=== PATIENT | male | born 1960 | race American Indian/Alaskan Native ===

== ENCOUNTER 2016-08-31 21:36 | Inpatient (IN) | payer OTHER ==
--- NOTE | 2016-08-31 23:02 | ED ---
General Adult HPI - General Chief complaint: Altered Mental Status Stated complaint: Mental Health/Body Aches Time Seen by Provider: 08/31/16 22:09 Source: patient, RN notes reviewed, old records reviewed Mode of arrival: wheelchair Limitations: no limitations - History of Present Illness Initial comments: This is a this is a 56-year-old male who ER for evaluation. Patient states he is coming in for altered patient is living by himself and not acting appropriate , friend states patient is concerned about his thought process and what he is doing. Patient does suffer from hepatitis C with hepatic encephalopathy. Both friend and patient are unsure if he is taking medications appropriately. Patient's really unsure in any answering of any questions. He does complain of mild headache mild abdominal pain mild nausea but having difficulty with attentiveness and answering questions, history is limited - Related Data Home Medications Medication Instructions Recorded Confirmed Baclofen [Lioresal] 20 mg PO TID 08/15/14 08/31/16 Insulin Aspart [NovoLOG] 8 unit SQ AC-TID 08/15/14 08/31/16 Insulin Glargine [Lantus] 20 unit SQ DAILY 08/15/14 08/31/16 Lactulose [Cephulac] 30 ml PO BID 08/15/14 08/31/16 Folic Acid 1 mg PO DAILY 08/31/16 08/31/16 Gabapentin [Neurontin] 300 mg PO BID 08/31/16 08/31/16 HYDROcodone/APAP 5-325MG [[place] 1 - 2 tab PO Q6HR PRN 08/31/16 08/31/16 5-325] Lansoprazole [Prevacid] 15 mg PO DAILY 08/31/16 08/31/16 Lisinopril-Hctz 20-12.5 mg 1 tab PO DAILY 08/31/16 08/31/16 [Zestoretic 20-12.5] Ranitidine HCl [Zantac] 150 mg PO BID 08/31/16 08/31/16 Rifaximin [Xifaxan] 550 mg PO BID 08/31/16 08/31/16 fentaNYL 25MCG/HR PATCH [Duragesic 1 patch TRANSDERM Q72H 08/31/16 08/31/16 25MCG/HR] metFORMIN HCL [Glucophage] 500 mg PO BID 08/31/16 08/31/16 Allergies Allergy/AdvReac Type Severity Reaction Status Date / Time acetaminophen [From Tylenol] Allergy LIVER Verified 08/31/16 22:41 DISEASE aspirin Allergy Unknown Verified 08/31/16 22:41 Review of Systems ROS Statement: Those systems with pertinent positive or pertinent negative responses have been documented in the HPI. ROS Other: All systems not noted in ROS Statement are negative. Past Medical History Past Medical History: COPD, Diabetes Mellitus Additional Past Medical History / Comment(s): HEPATITIS C, ALCOHOLIC CIRROSIS, KIDNEY FAILURE, esophageal varicies History of Any Multi-Drug Resistant Organisms: None Reported Past Surgical History: Unable to Obtain Additional Past Surgical History / Comment(s): finger amputee Past Anesthesia/Blood Transfusion Reactions: No Reported Reaction Past Psychological History: Anxiety, Depression Smoking Status: Current every day smoker Past Alcohol Use History: None Reported, Occasional Past Drug Use History: None Reported - Past Family History Mother Family Medical History: Congestive Heart Failure (CHF) Father Family Medical History: Diabetes Mellitus General Exam Limitations: altered mental status General appearance: alert, in no apparent distress Head exam: Present: atraumatic, normocephalic, normal inspection Eye exam: Present: normal appearance, PERRL, EOMI. Absent: scleral icterus, conjunctival injection, periorbital swelling ENT exam: Present: normal exam, mucous membranes moist Neck exam: Present: normal inspection. Absent: tenderness, meningismus, lymphadenopathy Respiratory exam: Present: normal lung sounds bilaterally. Absent: respiratory distress, wheezes, rales, rhonchi, stridor Cardiovascular Exam: Present: regular rate, normal rhythm, normal heart sounds. Absent: systolic murmur, diastolic murmur, rubs, gallop, clicks GI/Abdominal exam: Present: soft, normal bowel sounds. Absent: distended, tenderness, guarding, rebound, rigid Extremities exam: Present: normal inspection, full ROM, normal capillary refill. Absent: tenderness, pedal edema, joint swelling, calf tenderness Back exam: Present: normal inspection Neurological exam: Present: alert, oriented X3, CN II-XII intact Psychiatric exam: Present: normal affect, normal mood Skin exam: Present: warm, dry, intact, normal color. Absent: rash Course Vital Signs 08/31/16 22:03 Temperature 97.0 F L Pulse Rate 83 Respiratory 18 Rate Blood Pressure 185/96 O2 Sat by Pulse 98 Oximetry - Reevaluation(s) Reevaluation #1: 08/31/16 23:43 Patient shows no real clinical improvement EKG Findings - EKG Comments: EKG Findings:: EKG shows normal sinus rhythm rate of 70, UT 140, QRS 150, QTC 473 Medical Decision Making - Medical Decision Making 56 year for altered mental status evaluation. 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 Patient's GI doctor is not at this hospital patient's coming in today for altered mental status secondary to medical condition. Patient does have elevated ammonia and his altered on exam. Patient unable to answer questions, unable to recall certain events, patient is started to saw this is unable to take counseled secondary to his mental status at this time. Patient be admitted for ammonia reduction with lactulose, resuscitation and monitoring of blood sugar which is also elevated this patient is not taking his insulin - Lab Data Result diagrams: 08/31/16 22:40 08/31/16 22:40 Lab Results 08/31/16 08/31/16 08/31/16 Range/Units 22:40 22:40 22:40 WBC 3.5 L (3.8-10.6) k/uL RBC 4.51 (4.30-5.90) m/uL Hgb 15.9 (13.0-17.5) gm/dL Hct 46.2 (39.0-53.0) % MCV 102.5 H (80.0-100.0) fL MCH 35.4 H (25.0-35.0) pg MCHC 34.5 (31.0-37.0) g/dL RDW 12.7 (11.5-15.5) % Plt Count 63 L (150-450) k/uL Neutrophils % 50 % Lymphocytes % 38 % Monocytes % 8 % Eosinophils % 1 % Basophils % 1 % Neutrophils # 1.8 (1.3-7.7) k/uL Lymphocytes # 1.3 (1.0-4.8) k/uL Monocytes # 0.3 (0-1.0) k/uL Eosinophils # 0.0 (0-0.7) k/uL Basophils # 0.0 (0-0.2) k/uL Manual Slide Review Performed Macrocytosis Slight PT (9.0-12.0) sec INR (<1.1) APTT (22.0-30.0) sec Sodium 133 L (137-145) mmol/L Potassium 4.3 (3.5-5.1) mmol/L Chloride 100 (98-107) mmol/L Carbon Dioxide 22 (22-30) mmol/L Anion Gap 11 mmol/L BUN 18 (9-20) mg/dL Creatinine 0.60 L (0.66-1.25) mg/dL Est GFR (MDRD) Af Amer >60 (>60 ml/min/1.73 sqM) Est GFR (MDRD) Non-Af >60 (>60 ml/min/1.73 sqM) Glucose 384 H (74-99) mg/dL Plasma Lactic Acid Zachary (0.7-2.0) mmol/L Calcium 9.1 (8.4-10.2) mg/dL Phosphorus 3.5 (2.5-4.5) mg/dL Magnesium 1.7 (1.6-2.3) mg/dL Total Bilirubin 0.8 (0.2-1.3) mg/dL AST 101 H (17-59) U/L ALT 182 H (21-72) U/L Alkaline Phosphatase 247 H (38-126) U/L Ammonia (<30) umol/L Total Creatine Kinase 242 H (55-170) U/L Total Protein 7.8 (6.3-8.2) g/dL Albumin 3.9 (3.5-5.0) g/dL Urine Color Urine Appearance (Clear) Urine pH (5.0-8.0) Ur Specific [place] (1.001-1.035) Urine Protein (Negative) Urine Glucose (UA) (Negative) Urine Ketones (Negative) Urine Blood (Negative) Urine Nitrate (Negative) Urine Bilirubin (Negative) Urine Urobilinogen (<2.0) mg/dL Ur Leukocyte Esterase (Negative) Salicylates <1.0 mg/dL Urine Opiates Screen (NotDetected) Ur Oxycodone Screen (NotDetected) Urine Methadone Screen (NotDetected) Ur Propoxyphene Screen (NotDetected) Acetaminophen <10.0 ug/mL Ur Barbiturates Screen (NotDetected) U Tricyclic Antidepress (NotDetected) Ur Phencyclidine Scrn (NotDetected) Ur Amphetamines Screen (NotDetected) U Methamphetamines Scrn (NotDetected) U Benzodiazepines Scrn (NotDetected) Urine Cocaine Screen (NotDetected) U Marijuana (THC) Screen (NotDetected) Serum Alcohol <10 mg/dL 08/31/16 08/31/16 08/31/16 Range/Units 22:40 22:40 23:02 WBC (3.8-10.6) k/uL RBC (4.30-5.90) m/uL Hgb (13.0-17.5) gm/dL Hct (39.0-53.0) % MCV (80.0-100.0) fL MCH (25.0-35.0) pg MCHC (31.0-37.0) g/dL RDW (11.5-15.5) % Plt Count (150-450) k/uL Neutrophils % % Lymphocytes % % Monocytes % % Eosinophils % % Basophils % % Neutrophils # (1.3-7.7) k/uL Lymphocytes # (1.0-4.8) k/uL Monocytes # (0-1.0) k/uL Eosinophils # (0-0.7) k/uL Basophils # (0-0.2) k/uL Manual Slide Review Macrocytosis PT 11.2 (9.0-12.0) sec INR 1.1 (<1.1) APTT 23.7 (22.0-30.0) sec Sodium (137-145) mmol/L Potassium (3.5-5.1) mmol/L Chloride (98-107) mmol/L Carbon Dioxide (22-30) mmol/L Anion Gap mmol/L BUN (9-20) mg/dL Creatinine (0.66-1.25) mg/dL Est GFR (MDRD) Af Amer (>60 ml/min/1.73 sqM) Est GFR (MDRD) Non-Af (>60 ml/min/1.73 sqM) Glucose (74-99) mg/dL Plasma Lactic Acid Zachary 1.4 (0.7-2.0) mmol/L Calcium (8.4-10.2) mg/dL Phosphorus (2.5-4.5) mg/dL Magnesium (1.6-2.3) mg/dL Total Bilirubin (0.2-1.3) mg/dL AST (17-59) U/L ALT (21-72) U/L Alkaline Phosphatase (38-126) U/L Ammonia 40 H (<30) umol/L Total Creatine Kinase (55-170) U/L Total Protein (6.3-8.2) g/dL Albumin (3.5-5.0) g/dL Urine Color Yellow Urine Appearance Clear (Clear) Urine pH 6.0 (5.0-8.0) Ur Specific [place] 1.036 H (1.001-1.035) Urine Protein Negative (Negative) Urine Glucose (UA) 4+ H (Negative) Urine Ketones Negative (Negative) Urine Blood Negative (Negative) Urine Nitrate Negative (Negative) Urine Bilirubin Negative (Negative) Urine Urobilinogen 2.0 (<2.0) mg/dL Ur Leukocyte Esterase Negative (Negative) Salicylates mg/dL Urine Opiates Screen Detected H (NotDetected) Ur Oxycodone Screen Not Detected (NotDetected) Urine Methadone Screen Not Detected (NotDetected) Ur Propoxyphene Screen Not Detected (NotDetected) Acetaminophen ug/mL Ur Barbiturates Screen Not Detected (NotDetected) U Tricyclic Antidepress Not Detected (NotDetected) Ur Phencyclidine Scrn Not Detected (NotDetected) Ur Amphetamines Screen Not Detected (NotDetected) U Methamphetamines Scrn Not Detected (NotDetected) U Benzodiazepines Scrn Not Detected (NotDetected) Urine Cocaine Screen Not Detected (NotDetected) U Marijuana (THC) Screen Not Detected (NotDetected) Serum Alcohol mg/dL Disposition Clinical Impression: Delirium due to general medical condition, Altered mental status, Elevated liver enzymes, Encephalopathy, Hepatic encephalopathy, Hyperammonemia, Hyperglycemia Disposition: ADMITTED IP TO THIS [facility] Condition: Fair Referrals: Myah Michaud DO [Primary Care Provider] - 1-2 days
[2016-08-31 23:04] LABS: Basophils % (A) 1 %; CH 36.9; CHCM 36.1; Eosinophils % (A) 1 %; HCT 46.2 % (39.0-53.0); HDW 2.74; HGB 15.9 gm/dL (13.0-17.5); Luc # (Auto) 0.08; Luc % (Auto) 2; Lymphocytes # (A) 1.3 k/uL (1.0-4.8); Lymphocytes % (A) 38 %; MCH 35.4 pg (25.0-35.0); MCHC 34.5 g/dL (31.0-37.0); MCV 102.5 fL (80.0-100.0); Macrocytosis Slight; Mean Platelet Volume 8.9; Monocytes # (A) 0.3 k/uL (0-1.0); Monocytes % (A) 8 %; Neutrophils # (A) 1.8 k/uL (1.3-7.7); Neutrophils % (A) 50 %; RBC 4.51 m/uL (4.30-5.90); RDW 12.7 % (11.5-15.5); WBC 3.5 k/uL (3.8-10.6); WBC (Perox) 3.58
[2016-08-31 23:12] LABS: INR 1.1 (<1.1); Partial Thromboplastin Time 23.7 sec (22.0-30.0); Prothrombin Time 11.2 sec (9.0-12.0)
[2016-08-31 23:20] LABS: ALT 182 U/L (21-72); AST 101 U/L (17-59); Acetaminophen <10.0 ug/mL; Alcohol <10 mg/dL; Alkaline Phosphatase 247 U/L (38-126); Anion Gap 11 mmol/L; Blood Urea Nitrogen 18 mg/dL (9-20); Calcium 9.1 mg/dL (8.4-10.2); Carbon Dioxide 22 mmol/L (22-30); Chloride 100 mmol/L (98-107); Glucose 384 mg/dL (74-99); Magnesium 1.7 mg/dL (1.6-2.3); Non-African American GFR(MDRD) >60 (>60 ml/min/1.73 sqM); Phosphorous 3.5 mg/dL (2.5-4.5); Potassium 4.3 mmol/L (3.5-5.1); Salicylate <1.0 mg/dL; Sodium 133 mmol/L (137-145); Total Bilirubin 0.8 mg/dL (0.2-1.3); Total Protein 7.8 g/dL (6.3-8.2)
[2016-08-31 23:20] LABS: Appearance,Urine Clear (Clear); Bilirubin,Urine Negative (Negative); Glucose,Urine (UA) 4+ (Negative); Ketones,Urine Negative (Negative); Leukocyte Esterase,Urine Negative (Negative); Nitrite,Urine Negative (Negative); Protein,Urine Negative (Negative); Specific Gravity,Urine 1.036 (1.001-1.035); UA Billing (MACRO vs. MICRO) CHEM
[2016-08-31 23:24] LABS: Manual Review Performed
[2016-08-31 23:34] LABS: Creatine Kinase 242 U/L (55-170)
[2016-08-31] MEDS ORDERED: SODIUM CHLORIDE 0.9% 500 ML IV STA (23:41)
[2016-08-31] MEDS ORDERED: SODIUM CHLORIDE 0.9% 1,000 ML IV STA (23:41)
[2016-08-31] MEDS ORDERED: LACTULOSE 20 GM/30 ML CUP PO ONE (23:41)
[2016-08-31 23:47] LABS: Creatine Kinase MB 1.9 ng/mL (0.0-2.4); Troponin I <0.012 ng/mL (0.000-0.034)
[2016-09-01 00:17] LABS: Hemoglobin A1C 7.6 % (4.2-6.1)
[2016-09-01 01:55] VITALS: BMI 33.9
[2016-09-01] MEDS: SODIUM CHLORIDE 0.9% 1,000 ML IV STA (02:29)
[2016-09-01] MEDS: HYDROmorphone 1 MG/ML 1 ML SYRINGE IVP PRN (04:04)
[2016-09-01 07:04] LABS: Glucose,Whole Blood 237 mg/dL (75-99)
[2016-09-01] MEDS: INSULIN GLARGINE 100 UNIT/ML 10 ML VIAL SQ SCH (08:41)
[2016-09-01] MEDS: metFORMIN 500 MG TAB PO SCH ×2 (08:46→17:38)
[2016-09-01] MEDS: LISINOPRIL-HCTZ 20-12.5 MG 1 EACH TAB PO SCH (08:46)
[2016-09-01] MEDS: FOLIC ACID 1 MG TAB PO SCH (08:46)
[2016-09-01] MEDS: PANTOPRAZOLE 40 MG TABLET PO SCH (08:46)
[2016-09-01] MEDS: GABAPENTIN 300 MG CAP PO SCH ×2 (08:46→22:34)
[2016-09-01] MEDS: INSULIN LISPRO (humaLOG) 300 UNIT/3 ML VIAL SQ SCH ×6 (08:47→18:15)
[2016-09-01] MEDS: RIFAXIMIN 550 MG TABLET PO SCH ×2 (08:47→22:34)
[2016-09-01] MEDS: BACLOFEN 10 MG TAB PO SCH ×3 (08:48→21:29)
[2016-09-01] MEDS ORDERED: LACTULOSE 20 GM/30 ML CUP PO SCH (09:00)
--- NOTE | 2016-09-01 09:03 | HP ---
DATE OF ADMISSION: CHIEF COMPLAINT: A 56-year-old white male who presents with altered mental status. HISTORY OF PRESENT ILLNESS: This is a 56-year-old white male with hepatitis C and liver failure just got out of [facility] for treatment. He has failed 2 treatments for hepatitic C. He has hepatic encephalopathy recurrent . Not sure if he is taking his medicines correctly. His ammonia level is high at 40, which could be causing some confusion. He will be admitted to the hospital with Neurology and GI consults. Apparently he states he is DNR. He knows which hospital he is at and what year it is and who he is. Home medications include: 1. Lioresal. 2. NovoLog 8 units t.i.d. 3. Lantus 20 units daily. 4. Lactulose 30 mL b.i.d. 5. Folic acid 1 mg daily. 6. Neurontin 300 b.i.d. 7. Hydrocodone/APAP 5/325 one to two tabs every 6 hours. 8. Prevacid 15 mg daily. 9. Lisinopril hydrochlorothiazide 20/12.5 one daily. 10. Zantac 150 b.i.d. 11. Xifaxan 550 b.i.d. 12. Fentanyl patch 25 mcg q.72 hours. 13. Metformin 500 b.i.d. REVIEW OF SYSTEMS: Negative except for as mentioned in the HPI, 14-point done review of systems. PAST MEDICAL HISTORY: Hepatitis C, liver failure, COPD, diabetes mellitus, alcoholic cirrhosis, kidney failure, esophageal varices. Apparently he is a finger amputee. He has anxiety, depression. He is a current every day smoker. Alcohol as mentioned above. Drug use is negative. Mother had congestive heart failure. Father had diabetes mellitus. SOCIAL HISTORY: He is an from [place]. PHYSICAL EXAM: Temp 97.0, pulse 70s to 80s, respirations 16 to 18, blood pressure is 180s over 90s, O2 sat 98% on room air. HEENT: Normocephalic, atraumatic. CARDIOVASCULAR: S1, S2. LUNGS: Transmitted upper airway sounds. HEMATOLOGIC: Negative Homans. ABDOMEN: Distended due to positive fluid wave. Hepatomegaly present ( ) right costal margin. CARDIOVASCULAR: Regular rate and rhythm. No murmurs, rubs, gallops. EXTREMITIES: Some mild joint swelling and diffuse tenderness and possible some edema building up diffuse across his body. BACK: Normal inspection. NEUROLOGIC: Cranial nerves are intact. PSYCH: He is alert and oriented x3. SKIN: Warm, dry and intact. No rash. He is alert, in no apparent distress. EKG sinus rhythm. White count is 3.5, platelets are 63. Sodium 133, potassium 4.3, BUN 19, creatinine 0.6. ASSESSMENT: 1. Acute hepatic encephalopathy, most likely causing his confusion and dizziness of unclear etiology although he is alert and oriented x3. Wants to be DNR. Not sure if he is taking his medicines. Will start his lactulose back. Have GI see him and Neurology. Accu-Chek protocol. His home insulin will be given. His A1c is good at 7.5. Please see further orders. IV fluids will be given. 2. Hyperglycemia. 3. Hyperammonemia. 4. Hepatic encephalopathy. 5. Elevated liver enzymes. 6. Confusion and delirium at times, but he is alert and oriented x3, enough to say he wants to be DNR.
[2016-09-01 11:34] LABS: Glucose,Whole Blood 352 mg/dL (75-99)
--- NOTE | 2016-09-01 12:25 | P.CONS ---
History of Present Illness - Reason for Consult Consult date: 09/01/16 Hepatic encephalopathy Requesting physician: Cameron Gautam - History of Present Illness 56-year-old gentleman patient of Dr. Michaud with a past medical history of hepatitis C with failed outpatient therapy, hepatic encephalopathy, insulin- dependent diabetes mellitus, COPD, EtOH abuse, esophageal varices, anxiety, depression. Admitted with mental status changes with elevated ammonia level. Recently hospitalized [facility] 2 weeks ago for acute hepatic encephalopathy. Patient states "I forgot to take my medications". Neurology consultation requested. Admission ammonia level 40 patient was placed on Xifaxan and lactulose repeat ammonia level 34. He is passing flatus no bowel movements. Additional chemistries white count 3.5. Hemoglobin 15.9. MCV 102. Platelets 63,000. INR 1.1. Total bilirubin 0.8. AST 101. ALT 182. Alkaline phosphatase 247. Glucose 384. Review of Systems Constitutional: Denies fever, chills, sweats, weight gain, or loss. HEENT: Negative for migraines, blurred vision or loss, earaches, drainage, tinnitus, oral mucosal lesions, dysphagia, or odynophagia. Cardiac: Negative for chest pain, arrhythmias, or palpitation. Respiratory: COPD. Nicotine cigarette dependency. Negative for shortness of breath, hemoptysis, cough, or sputum production. Gastrointestinal: See HPI for pertinent findings. Genitourinary: Negative for hematuria, urgency, frequency, polyuria, dysuria, or penile discharge. Musculoskeletal: Negative for muscle aches, swelling, arthritis, and arthralgias. Neurologic: Negative for stroke or TIA. Endocrine: Diabetes mellitus. Negative for thyroid problems. Skin: Negative for rash or itching. Psychiatric: depression and anxiety All systems: negative (See HPI) Past Medical History Past Medical History: COPD, Diabetes Mellitus Additional Past Medical History / Comment(s): HEPATITIS C, ALCOHOLIC CIRROSIS, KIDNEY FAILURE, esophageal varicies History of Any Multi-Drug Resistant Organisms: None Reported Past Surgical History: Unable to Obtain Additional Past Surgical History / Comment(s): right pinky finger amputation, surgery for esophageal varices Past Anesthesia/Blood Transfusion Reactions: No Reported Reaction Past Psychological History: Anxiety, Depression Smoking Status: Current every day smoker Past Alcohol Use History: Occasional Past Drug Use History: None Reported - Past Family History Mother Family Medical History: Congestive Heart Failure (CHF) Father Family Medical History: Diabetes Mellitus Medications and Allergies Home Medications Medication Instructions Recorded Confirmed Type Baclofen [Lioresal] 20 mg PO TID 08/15/14 08/31/16 History Insulin Aspart [NovoLOG] 8 unit SQ AC-TID 08/15/14 08/31/16 History Insulin Glargine [Lantus] 20 unit SQ DAILY 08/15/14 08/31/16 History Lactulose [Cephulac] 30 ml PO BID 08/15/14 08/31/16 History Folic Acid 1 mg PO DAILY 08/31/16 08/31/16 History Gabapentin [Neurontin] 300 mg PO BID 08/31/16 08/31/16 History HYDROcodone/APAP 5-325MG [[place] 1 - 2 tab PO Q6HR PRN 08/31/16 08/31/16 History 5-325] Lansoprazole [Prevacid] 15 mg PO DAILY 08/31/16 08/31/16 History Lisinopril-Hctz 20-12.5 mg 1 tab PO DAILY 08/31/16 08/31/16 History [Zestoretic 20-12.5] Ranitidine HCl [Zantac] 150 mg PO BID 08/31/16 08/31/16 History Rifaximin [Xifaxan] 550 mg PO BID 08/31/16 08/31/16 History fentaNYL 25MCG/HR PATCH [Duragesic 1 patch TRANSDERM Q72H 08/31/16 08/31/16 History 25MCG/HR] metFORMIN HCL [Glucophage] 500 mg PO BID 08/31/16 08/31/16 History Allergies Allergy/AdvReac Type Severity Reaction Status Date / Time acetaminophen [From Tylenol] Allergy LIVER Verified 08/31/16 22:41 DISEASE aspirin Allergy Unknown Verified 08/31/16 22:41 Physical Exam Vitals: Vital Signs Temp Pulse Pulse Resp BP BP Pulse Ox 09/01/16 07:00 96 09/01/16 02:00 64 09/01/16 01:17 96.9 F L 65 18 132/78 100 09/01/16 01:15 97.4 F L 64 16 155/92 95 09/01/16 00:04 72 18 145/95 98 Intake and Output 08/31/16 09/01/16 09/01/16 22:59 06:59 14:59 Intake Total 400 120 Output Total 300 900 Balance 100 -780 Intake: IV 400 Sodium Chloride 0.9% 1, 400 000 ml @ 100 mls/hr IV . Q10H STA Rx#:[id number] Oral 120 Output: Urine 300 900 Other: Voiding Method Urinal # Voids 1 Weight 113.398 kg General appearance: The patient is alert, oriented, in no acute distress. HET: Head is normocephalic and atraumatic. Pupils are equal and reactive. Oropharynx is clear without lesions. Neck: Supple without lymphadenopathy. Trachea midline. Heart: S1 S2. Regular rate and rhythm. Lungs: No crackles or wheezes are heard. Abdomen: Soft, nontender, nondistended with bowel sounds. No peritoneal signs. No palpable organomegaly or masses. Extremities: Normal skin color and turgor. No cyanosis, rash, ulceration, clubbing, or edema. Radial and pedal pulses are 2/4 bilaterally. Neurological: No focal deficits. Strength and sensation are grossly intact. Results CBC & Chem 7: 08/31/16 22:40 08/31/16 22:40 Labs: Abnormal Lab Results - Last 24 Hours (Table) 09/01/16 09/01/16 09/01/16 Range/Units 06:56 09:19 11:15 POC Glucose (mg/dL) 237 H 352 H (75-99) mg/dL Ammonia 34 H (<30) umol/L Assessment and Plan (1) Hepatic encephalopathy Narrative/Plan: 56-year-old gentleman with a history of hepatitis C with failed outpatient therapy, hepatic encephalopathy, remote EtOH abuse, possible underlying liver cirrhosis presents with altered mental status and elevated ammonia level consistent with acute hepatic encephalopathy with recent hospitalization at [facility] 2 weeks ago for acute hepatic encephalopathy. Status: Acute (2) Altered mental status Status: Acute (3) Hepatitis C Status: Chronic Plan: 1. Neurology consultation. 2. Continue with lactulose and titrate for 3 bowel movements daily. Continue Xifaxan. 3. Ultrasound abdomen/right upper quadrant secondary to elevated liver enzymes. We'll obtain hepatitis panel and quantitative hepatitis C RNA/ genotype. AFP level. 4. Will follow closely with you. Thank you for this kind referral and the opportunity to participate in the care of your patient. This consultation was discussed with Dr. Jack. The impression and plan of care have been directed as dictated.
[2016-09-01] MEDS: ENOXAPARIN 40 MG/0.4 ML SYRINGE SQ SCH (13:22)
[2016-09-01] MEDS: LACTULOSE 20 GM/30 ML CUP PO SCH ×2 (13:29→21:29)
[2016-09-01 17:07] LABS: Glucose,Whole Blood 216 mg/dL (75-99)
[2016-09-01] MEDS: HYDROcodone/APAP 5-325MG 1 EACH TAB PO PRN (17:36)
[2016-09-01 20:48] LABS: Glucose,Whole Blood 206 mg/dL (75-99)
[2016-09-02] MEDS: HYDROcodone/APAP 5-325MG 1 EACH TAB PO PRN ×4 (00:17→21:14)
[2016-09-02 06:53] LABS: Glucose,Whole Blood 180 mg/dL (75-99)
[2016-09-02 07:55] LABS: Hepatitis B Surface Ag Index 0.05
[2016-09-02] MEDS: INSULIN LISPRO (humaLOG) 300 UNIT/3 ML VIAL SQ SCH ×7 (07:56→20:46)
[2016-09-02] MEDS: NICOTINE 21MG/24HR PATCH TRANSDERM SCH (07:57)
[2016-09-02] MEDS: HYDROmorphone 1 MG/ML 1 ML SYRINGE IVP PRN ×2 (07:59→22:29)
[2016-09-02 08:01] LABS: Hepatitis B Core IgM Index 0.04
[2016-09-02] MEDS: SODIUM CHLORIDE 0.9% 1,000 ML IV STA ×2 (08:03→17:52)
[2016-09-02] MEDS: ENOXAPARIN 40 MG/0.4 ML SYRINGE SQ SCH (08:03)
[2016-09-02 08:19] LABS: Hepatitis C Virus IgG Ab Reactive (Negative)
--- NOTE | 2016-09-02 08:54 | P.PN ---
Subjective Principal diagnosis: Hepatic encephalopathy 56-year-old gentleman with a history of hepatitis C failed outpatient therapy recent admission to [facility] 2 weeks ago for hepatic encephalopathy, admitted with mental status changes and elevated ammonia level. Feels better today. Passing flatus and bowel movements. Objective - Vital Signs Vital signs: Vital Signs Temp 98.1 F 09/02/16 07:00 Pulse 61 09/02/16 07:00 Resp 16 09/02/16 07:00 BP 125/81 09/02/16 07:00 Pulse Ox 95 09/02/16 07:00 Intake & Output 09/01/16 09/02/16 09/02/16 18:59 06:59 18:59 Intake Total 580 1200 240 Output Total 1500 300 Balance -920 900 240 Intake: IV 1200 Sodium Chloride 0.9% 1, 1200 000 ml @ 100 mls/hr IV . Q10H STA Rx#:[id number] Oral 580 240 Output: Urine 1500 300 Other: Voiding Method Urinal Urinal # Voids 1 1 - Exam General appearance: The patient is alert, oriented, in no acute distress. HET: Head is normocephalic and atraumatic. Pupils are equal and reactive. Oropharynx is clear without lesions. Neck: Supple without lymphadenopathy. Trachea midline. Heart: S1 S2. Regular rate and rhythm. Lungs: No crackles or wheezes are heard. Abdomen: Soft, nontender, nondistended with bowel sounds. No peritoneal signs. No palpable organomegaly or masses. Extremities: Normal skin color and turgor. No cyanosis, rash, ulceration, clubbing, or edema. Radial and pedal pulses are 2/4 bilaterally. Neurological: No focal deficits. Strength and sensation are grossly intact. - Labs CBC & Chem 7: 08/31/16 22:40 08/31/16 22:40 Labs: Abnormal Lab Results - Last 24 Hours (Table) 09/01/16 09/01/16 09/01/16 Range/Units 09:19 11:15 17:02 POC Glucose (mg/dL) 352 H 216 H (75-99) mg/dL Ammonia 34 H (<30) umol/L 09/01/16 09/02/16 Range/Units 20:46 06:51 POC Glucose (mg/dL) 206 H 180 H (75-99) mg/dL Ammonia (<30) umol/L Assessment and Plan (1) Hepatic encephalopathy Narrative/Plan: 56-year-old gentleman with a history of hepatitis C with failed outpatient therapy, hepatic encephalopathy, remote EtOH abuse, possible underlying liver cirrhosis presents with altered mental status and elevated ammonia level consistent with acute hepatic encephalopathy with recent hospitalization at [facility] 2 weeks ago for acute hepatic encephalopathy. Status: Acute (2) Altered mental status Status: Acute (3) Hepatitis C Status: Chronic Plan: 1. Neurology consultation. 2. Continue with lactulose and titrate for 3 bowel movements daily. Continue Xifaxan. 3. Ultrasound abdomen/right upper quadrant scheduled today. 4. Will follow closely with you. Assessment and plan a care discussed with Dr. Jack
[2016-09-02] MEDS: metFORMIN 500 MG TAB PO SCH ×2 (09:59→17:53)
[2016-09-02] MEDS: PANTOPRAZOLE 40 MG TABLET PO SCH (09:59)
[2016-09-02] MEDS: LISINOPRIL-HCTZ 20-12.5 MG 1 EACH TAB PO SCH (10:00)
[2016-09-02] MEDS: LACTULOSE 20 GM/30 ML CUP PO SCH ×2 (10:00→21:14)
[2016-09-02] MEDS: BACLOFEN 10 MG TAB PO SCH ×3 (10:00→20:47)
[2016-09-02] MEDS: RIFAXIMIN 550 MG TABLET PO SCH ×2 (10:00→20:47)
[2016-09-02] MEDS: GABAPENTIN 300 MG CAP PO SCH ×3 (10:01→20:47)
[2016-09-02] MEDS: FOLIC ACID 1 MG TAB PO SCH (10:01)
[2016-09-02] MEDS: INSULIN GLARGINE 100 UNIT/ML 10 ML VIAL SQ SCH (10:01)
--- NOTE | 2016-09-02 11:04 | US ---
EXAMINATION TYPE: US abdomen limited DATE OF EXAM: 09/02/2016 9:55 AM COMPARISON: on PACS gallbladder ultrasound August 15, 2014. CLINICAL HISTORY: elevated liver enzymes . RUQ pain, hx of hepatitis C EXAM MEASUREMENTS: Liver Length: 17.0 cm Gallbladder Wall: 0.3 cm CHD: 0.4 cm Right Kidney: 12.9 x 6.9 x 5.9 cm TECHNOLOGIST IMPRESSION: prominent anterior vessel coursing from left lobe of liver (unable to deter mine if it directly off the left portal vein) to umbilicus region, recanalization of umbilical vein? Prominent echogenic area between right lobe of liver and RK. Pancreas: limited visualization, but appears heterogenous and echogenic Liver: upper limits enlargement, slightly heterogenous Gallbladder: wnl Evidence for sonographic Brooks's sign: neg CHD: wnl Right Kidney: wnl Visualized pancreas is slightly heterogeneous in appearance. Visualized liver remains heterogeneous i n appearance without intrahepatic ductal dilatation. Evaluation for focal masses is limited due to th e heterogeneity. A prominent patent vein anterior to liver is marked by technologist with monophasic flow. No perihepatic ascites is noted. IMPRESSION: No gallstones or ultrasound evidence for acute cholecystitis. Heterogeneity of liver is f elt likely product of underlying hepatocellular disease with suspected recanalized umbilical vein ant erior to liver noted, clinical correlation for portal hypertension advised.
[2016-09-02 11:58] LABS: Glucose,Whole Blood 240 mg/dL (75-99)
--- NOTE | 2016-09-02 14:53 | P.PN ---
Subjective 56-year-old looking older than stated age presented to the emergency room with mental status changes. Patient has a history of hepatitis C and liver failure. Patient reportedly was just discharged 2 weeks ago from [facility] patient was being treated for hepatitis C and liver failure. With hepatic encephalopathy Patient has had 2 failed treatments for hepatitis C. Patient has hepatic encephalopathy recurrent Patient's admission ammonia level was 40 patient was treated by GI service and placed on lactulose and xifaxan with a repeat ammonia level of 34. Patient's currently being followed by GI service. This morning the patient states he feels better is passing gas and having bowel movements Objective - Vital Signs Vital signs: Vital Signs Temp 98.1 F 09/02/16 07:00 Pulse 61 09/02/16 07:00 Resp 16 09/02/16 07:00 BP 125/81 09/02/16 07:00 Pulse Ox 95 09/02/16 07:00 Intake & Output 09/01/16 09/02/16 09/02/16 18:59 06:59 18:59 Intake Total 580 1200 540 Output Total 1500 300 370 Balance -920 900 170 Intake: IV 1200 Sodium Chloride 0.9% 1, 1200 000 ml @ 100 mls/hr IV . Q10H STA Rx#:[id number] Oral 580 540 Output: Urine 1500 300 370 Other: Voiding Method Urinal Urinal Urinal # Voids 1 1 - Exam Physical exam 56-year-old gentleman looking older than stated age is pleasant cooperative alert and oriented 3 appears in no acute distress Lungs essentially clear no crackles no wheezing no cough noted no shortness breath heart S1-S2 audible regular no murmur Abdomen soft nontender not distended no palpable organomegaly no nausea no vomiting urinating no difficulty Extremities no edema noted - Labs CBC & Chem 7: 08/31/16 22:40 08/31/16 22:40 Labs: Abnormal Lab Results - Last 24 Hours (Table) 09/01/16 09/01/16 09/02/16 Range/Units 17:02 20:46 06:51 POC Glucose (mg/dL) 216 H 206 H 180 H (75-99) mg/dL 09/02/16 Range/Units 11:51 POC Glucose (mg/dL) 240 H (75-99) mg/dL Assessment and Plan Plan: Impression Present on admission acute hepatic encephalopathy History of hepatitis C failed outpatient therapy Remote EtOH abuse possible underlying liver cirrhosis A recent hospitalization 2 weeks prior [facility] treated for acute peptic encephalopathy Per advance directives no CODE STATUS Type 2 diabetes insulin requiring hemoglobin A1c 7.6 Plan Continue recommendations by GI service Monitor blood sugars address as indicated Resume home meds as appropriate DVT and GI prophylaxis Further recommendations pending The above dictated assessment and findings were discussed with Dr. Gautam. Impression and the plan of care have been dictated as directed. Katia Zhong nurse practitioner acting as a scribe for Dr. Gautam
--- NOTE | 2016-09-02 14:54 | XR ---
EXAMINATION TYPE: XR chest 1V portable DATE OF EXAM: 09/02/2016 1:52 PM COMPARISON: Prior chest x-ray 15 August 2014 HISTORY: Extended-care facility placement, chest pain TECHNIQUE: Single frontal view of the chest is obtained. FINDINGS: There is no focal air space opacity, pleural effusion, or pneumothorax seen. The cardiac silhouette size is stable. The patient is rotated. The osseous structures are intact. IMPRESSION: Borderline cardiac size. No acute abnormality.
[2016-09-02 15:48] LABS: Glucose,Whole Blood 258 mg/dL (75-99)
[2016-09-02] MEDS: hydrALAZINE HCL 20 MG/ML 1 ML VIAL IVP PRN ×2 (15:53→20:48)
[2016-09-02 17:03] LABS: Glucose,Whole Blood 241 mg/dL (75-99)
--- NOTE | 2016-09-02 18:29 | CT ---
EXAMINATION TYPE: CT brain wo con DATE OF EXAM: 09/02/2016 6:17 PM COMPARISON: 08/15/2014 HISTORY: Patient complains of left side weakness. CT DLP: 1033 mGycm Automated exposure control for dose reduction was used. FINDINGS: There is mild cerebral cortical atrophy. There is no mass effect nor midline shift. There is no sign of intracranial hemorrhage. There is mucosal thickening and fluid in the left maxillary sinus. The ca lvarium appears intact. IMPRESSION: No acute intracranial abnormality. There is new left-sided maxillary sinusitis compared to old exam.
[2016-09-02 19:56] LABS: Glucose,Whole Blood 202 mg/dL (75-99)
--- NOTE | 2016-09-02 20:43 | US ---
EXAMINATION TYPE: US carotid duplex BILAT DATE OF EXAM: 09/02/2016 8:31 PM COMPARISON: NONE CLINICAL HISTORY: CVA. EXAM MEASUREMENTS: RIGHT: Peak Systolic Velocity (PSV) cm/sec ----- Right CCA: 75.5 ----- Right ICA: 59.9 ----- Right ECA: 114.1 ICA/CCA ratio: 0.8 RIGHT: End Diastole cm/sec ----- Right CCA: 20.7 ----- Right ICA: 20.7 ----- Right ECA: 19.5 LEFT: Peak Systolic Velocity (PSV) cm/sec ----- Left CCA: 106.4 ----- Left ICA: 63.6 ----- Left ECA: 83.8 ICA/CCA ratio: 0.6 LEFT: End Diastole cm/sec ----- Left CCA: 30.5 ----- Left ICA: 24.1 ----- Left ECA: 16.0 VERTEBRALS (direction of flow): Right Vertebral: Antegrade Left Vertebral: Antegrade TECHNOLOGIST IMPRESSION: Mild amount of plaque visualized in bilateral bulbs and left proximal ICA, no elevated velocities, no significant stenosis IMPRESSION: There is antegrade flow in the vertebral arteries. The images and measurements suggest c lose to 50% stenosis in both internal carotid arteries. Criteria for Assigning % of Stenosis / Diameter reduction (Estimation based on the indirect measurements of the internal carotid artery velocities (ICA PSV). 1. Normal (no stenosis)=ICA PSV < 125 cm/s: ratio < 2.0: ICA EDV<40 cm/s. 2. Less than 50% stenosis=ICA PSV < 125 cm/s: ratio < 2.0: ICA EDV<40 cm/s. 3. 50 to 69% stenosis=ICA PSV of 125 to 230 cm/s: ration 2.0 ? 4.0: ICA EDV 40-100 cm/s. 4. Greater than 70% stenosis to near occlusion= ICA PSV > 230 cm/s: ratio > 4.0: ICA EDV > 100 cm/s. 5. Near occlusion= ICA PSV velocities may be low or undetectable: variable ratio and ICA EDV. 6. Total occlusion=unable to detect flow.
--- NOTE | 2016-09-02 23:03 | CONS ---
DATE OF CONSULTATION: 09/02/2016 CHIEF COMPLAINT: Altered mental status. HISTORY OF PRESENT ILLNESS: The patient is a 56-year-old male who is being evaluated by the neurology service per the request of Dr. Cameron Gautam for altered mental status. The patient was brought into [facility] Emergency Room for increased confusion. The patient does have a long-standing history of hepatitis C with chronic liver insufficiency. He was recently treated at [facility] for hepatic encephalopathy. On this admission, his comprehensive metabolic profile showed mild hyponatremia at 133, hyperglycemia at 384, elevated AST at 101 and ALT at 182. His serum ammonia level 40. Gastroenterology has been consulted and he is currently on lactulose. A repeat ammonia level showed mild improvement at 34. Since his admission, his mental status has improved and he has been oriented x3 since his arrival on the medical floor. Earlier today he developed a sudden onset of numbness and tingling involving his right body, including his right face, right upper extremity and right lower extremity. He also reports some weakness on the right side, although he is moving his extremities spontaneously with no obvious difficulties. A STAT CT scan of the brain was done which showed no acute intracranial abnormalities. There was evidence of left maxillary sinusitis. He is complaining of a headache that he rates at 6 out of 10 in intensity. His blood pressure was significantly elevated earlier today at 171/109. At the time of my evaluation, his blood pressure is 144/80. I did review his laboratory workup, and his CBC shows significant thrombocytopenia at 63,000. His hepatitis panel was positive for hepatitis C. His urine drug screen was positive for opiates. The patient is on fentanyl and [place] for chronic spine pain. PAST MEDICAL HISTORY: 1. Hepatitis C. 2. Diabetes. 3. Hypertension. 4. Chronic obstructive pulmonary disease. 5. Liver cirrhosis. 6. History of esophageal varices. 7. Depression. 8. Anxiety disorder. SOCIAL HISTORY: The patient is a current everyday smoker. He denies any drug use. He does have a previous history of extensive alcohol use but states that he only drinks alcohol rarely now. FAMILY HISTORY: Positive for diabetes and heart disease. HOME MEDICATIONS: Reviewed in the chart. ALLERGIES: ACETAMINOPHEN, ASPIRIN. REVIEW OF SYSTEMS: CONSTITUTIONAL: Positive for fatigue. EYES: Positive for chronic diminished vision. ENT: Negative. CARDIOVASCULAR: Negative. RESPIRATORY: Positive for frequent shortness of breath. NEUROLOGICAL: As mentioned above. GASTROINTESTINAL: Positive for occasional abdominal pain. GENITOURINARY: Negative. PSYCHIATRIC: Positive for history of depression and anxiety disorder. ENDOCRINE: Positive for diabetes. MUSCULOSKELETAL: Positive for chronic low back pain and occasional joint pain. DERMATOLOGICAL: Negative. PHYSICAL EXAM: Vital signs show a temperature of 97.5, pulse 72, respiration 16, blood pressure 144/80. GENERAL APPEARANCE: The patient is an obese male who appears to be in no acute distress. HEENT: Normocephalic, atraumatic. No facial asymmetry is seen. Neck is supple with no masses felt. CARDIOVASCULAR: Regular rate and rhythm. ABDOMEN: Mildly distended. Tender to palpation in all 4 quadrants. EXTREMITIES: No edema or clubbing. NEUROLOGICAL EXAM: The patient is awake and oriented x3. Speech and language are normal. Strength appears to be full in all 4 extremities. Sensory examination showed diminished light touch sensation on the right compared to the left upper and lower extremities. Cranial nerve testing showed diminished light touch sensation on the right face compared to the left. No facial asymmetry is noticed. Extraocular muscles are intact. No pronator drift is seen. No seizure-like activity is noticed. IMPRESSION: 1. Altered mental status, improved. 2. Hepatic encephalopathy. 3. Acute ischemic stroke. 4. Right-sided sensory deficit. 5. Hypertension. 6. Diabetes. 7. History of hepatitis C. 8. Thrombocytopenia. RECOMMENDATION: The patient's altered mental status has improved and his serum ammonia level is improving on lactulose. Gastroenterology is following the patient. More concerning is a sudden onset of right-sided numbness involving the right face, upper extremity and lower extremity. There is concern for an acute thalamic stroke. His CT scan of the brain showed no acute findings. I will order an MRI of the brain without contrast to check for evidence of acute ischemia. Due to his significant thrombocytopenia, antiplatelet therapy will not be started. I will order daily CBCs to monitor his platelet levels. Continue the rest of your current workup and management. I will order a fasting lipid panel, EEG and serum homocysteine level. I will continue to follow with you. Further recommendations to follow. Thank you for allowing me to participate in the care of your patient. If you have any questions, please feel free to contact me.
[2016-09-03] MEDS: HYDROcodone/APAP 5-325MG 1 EACH TAB PO PRN ×3 (04:47→18:18)
[2016-09-03 07:12] LABS: Glucose,Whole Blood 175 mg/dL (75-99)
[2016-09-03 07:15] LABS: CH 36.5; CHCM 35.2; HCT 42.5 % (39.0-53.0); HDW 2.66; HGB 14.5 gm/dL (13.0-17.5); MCH 35.4 pg (25.0-35.0); MCHC 34.1 g/dL (31.0-37.0); MCV 103.9 fL (80.0-100.0); Macrocytosis Slight; Mean Platelet Volume 8.2; RBC 4.08 m/uL (4.30-5.90); RDW 12.7 % (11.5-15.5)
[2016-09-03 07:38] LABS: ALT 255 U/L (21-72); AST 193 U/L (17-59); Alkaline Phosphatase 152 U/L (38-126); Anion Gap 8 mmol/L; Blood Urea Nitrogen 10 mg/dL (9-20); Calcium 8.6 mg/dL (8.4-10.2); Carbon Dioxide 23 mmol/L (22-30); Chloride 106 mmol/L (98-107); Cholesterol 131 mg/dL (<200); Glucose 181 mg/dL (74-99); HDL Cholesterol 51 mg/dL (40-60); Non-African American GFR(MDRD) >60 (>60 ml/min/1.73 sqM); Potassium 3.7 mmol/L (3.5-5.1); Sodium 137 mmol/L (137-145); Total Bilirubin 1.6 mg/dL (0.2-1.3); Total Protein 6.8 g/dL (6.3-8.2); Triglycerides 96 mg/dL (<150)
[2016-09-03] MEDS: INSULIN GLARGINE 100 UNIT/ML 10 ML VIAL SQ SCH (07:55)
[2016-09-03] MEDS: HYDROmorphone 1 MG/ML 1 ML SYRINGE IVP PRN ×2 (07:57→22:00)
[2016-09-03] MEDS: NICOTINE 21MG/24HR PATCH TRANSDERM SCH (08:06)
[2016-09-03] MEDS: INSULIN LISPRO (humaLOG) 300 UNIT/3 ML VIAL SQ SCH ×7 (08:06→21:46)
[2016-09-03] MEDS: metFORMIN 500 MG TAB PO SCH ×2 (08:09→18:15)
[2016-09-03] MEDS: BACLOFEN 10 MG TAB PO SCH ×3 (08:09→21:45)
[2016-09-03] MEDS: PANTOPRAZOLE 40 MG TABLET PO SCH (08:09)
[2016-09-03] MEDS: LACTULOSE 20 GM/30 ML CUP PO SCH ×2 (08:10→21:45)
[2016-09-03] MEDS: GABAPENTIN 300 MG CAP PO SCH ×3 (08:10→21:45)
[2016-09-03] MEDS: SODIUM CHLORIDE 0.9% 1,000 ML IV SCH (08:10)
[2016-09-03] MEDS: FOLIC ACID 1 MG TAB PO SCH (08:10)
[2016-09-03] MEDS: LISINOPRIL-HCTZ 20-12.5 MG 1 EACH TAB PO SCH (08:11)
[2016-09-03] MEDS: RIFAXIMIN 550 MG TABLET PO SCH ×2 (08:11→21:46)
--- NOTE | 2016-09-03 08:26 | P.PN ---
Subjective 56-year-old male being seen on rounds this morning is sitting up taking a diet. Patient continues to report has a right tingly sensation. Patient states it' s been like that since his prior stroke. Events noted yesterday. September 02 CAT scan of the brain was done yesterday which showed no acute intracranial hemorrhage. There is evidence of left sinusitis. Neurology consultation is in progress. Patient is scheduled today for an EEG and an MRI of the brain. Objective - Vital Signs Vital signs: Vital Signs Temp 97.8 F 09/03/16 07:27 Pulse 69 09/03/16 07:27 Resp 16 09/03/16 07:27 BP 137/83 09/03/16 07:27 Pulse Ox 96 09/03/16 07:27 Intake & Output 09/02/16 09/03/16 09/03/16 18:59 06:59 18:59 Intake Total 540 500 Output Total 870 Balance -330 500 Intake: Oral 540 500 Output: Urine 870 Other: Voiding Method Urinal Urinal # Voids 2 # Bowel Movements 1 - Exam Physical exam 56-year-old male sitting up taking a diet oriented 3 HEENT no facial droop Lungs essentially clear on room air Heart S1-S2 audible regular no murmur noted Abdomen soft nontender states had 1 stool urinating no difficulty Extremities will move all extremities to simple command. Bilateral grasp slightly weaker on the right than the left. No pronator drift noted. No edema noted. - Labs CBC & Chem 7: 09/03/16 06:25 09/03/16 06:25 Labs: Abnormal Lab Results - Last 24 Hours (Table) 09/02/16 09/02/16 09/02/16 Range/Units 11:51 15:15 17:02 WBC (3.8-10.6) k/uL RBC (4.30-5.90) m/uL MCV (80.0-100.0) fL MCH (25.0-35.0) pg Plt Count (150-450) k/uL Creatinine (0.66-1.25) mg/dL Glucose (74-99) mg/dL POC Glucose (mg/dL) 240 H 258 H 241 H (75-99) mg/dL Total Bilirubin (0.2-1.3) mg/dL AST (17-59) U/L ALT (21-72) U/L Alkaline Phosphatase (38-126) U/L Albumin (3.5-5.0) g/dL 09/02/16 09/03/16 09/03/16 Range/Units 19:55 06:25 06:25 WBC 3.0 L (3.8-10.6) k/uL RBC 4.08 L (4.30-5.90) m/uL MCV 103.9 H (80.0-100.0) fL MCH 35.4 H (25.0-35.0) pg Plt Count 54 L (150-450) k/uL Creatinine 0.63 L (0.66-1.25) mg/dL Glucose 181 H (74-99) mg/dL POC Glucose (mg/dL) 202 H (75-99) mg/dL Total Bilirubin 1.6 H (0.2-1.3) mg/dL AST 193 H (17-59) U/L ALT 255 H (21-72) U/L Alkaline Phosphatase 152 H (38-126) U/L Albumin 3.4 L (3.5-5.0) g/dL 09/03/16 Range/Units 06:57 WBC (3.8-10.6) k/uL RBC (4.30-5.90) m/uL MCV (80.0-100.0) fL MCH (25.0-35.0) pg Plt Count (150-450) k/uL Creatinine (0.66-1.25) mg/dL Glucose (74-99) mg/dL POC Glucose (mg/dL) 175 H (75-99) mg/dL Total Bilirubin (0.2-1.3) mg/dL AST (17-59) U/L ALT (21-72) U/L Alkaline Phosphatase (38-126) U/L Albumin (3.5-5.0) g/dL Assessment and Plan Plan: Impression Present on admission acute hepatic encephalopathy History of hepatitis C failed outpatient therapy Remote EtOH abuse possible underlying liver cirrhosis A recent hospitalization 2 weeks prior [facility] treated for acute peptic encephalopathy Per advance directives no CODE STATUS Type 2 diabetes insulin requiring hemoglobin A1c 7.6 Sudden onset September 02 right side weakness MRI of the brain without contrast ordered to rule out evidence of acute ischemia Episode on September 02 hypertension urgency Bilateral carotid Dopplers no significant stenosis noted History of a prior stroke Chronic pain with narcotic dependency Plan Continue recommendations by GI service Monitor blood sugars address as indicated Resume home meds as appropriate DVT and GI prophylaxis Further recommendations pending Decrease IV fluid to 15 hour Follow up on the pending studies MRI of the brain and EEG ordered by neurology The above dictated assessment and findings were discussed with Dr. Jada amato covering for dr Gautam Impression and the plan of care have been dictated as directed. Katia Zhong nurse practitioner acting as a scribe for Dr. Jada amato covering for Dr. Gautam
--- NOTE | 2016-09-03 10:55 | P.PN ---
Subjective Principal diagnosis: Hepatic encephalopathy 56-year-old gentleman with a history of hepatitis C failed outpatient therapy recent admission to [facility] 2 weeks ago for hepatic encephalopathy, admitted with mental status changes and elevated ammonia level. Feels better today. Passing flatus and bowel movements. Liver enzymes increase today. Ultrasound abdomen reported no intrahepatic ductal dilatation. Heterogeneous liver. Possible portal hypertension with recannulization of umbilical vein. AFP 8.7. Hepatitis C antibody reactive quantitative measurement pending. Objective - Vital Signs Vital signs: Vital Signs Temp 97.8 F 09/03/16 07:27 Pulse 69 09/03/16 07:27 Resp 16 09/03/16 07:27 BP 137/83 09/03/16 07:27 Pulse Ox 96 09/03/16 07:27 Intake & Output 09/02/16 09/03/16 09/03/16 18:59 06:59 18:59 Intake Total 540 500 Output Total 870 Balance -330 500 Intake: Oral 540 500 Output: Urine 870 Other: Voiding Method Urinal Urinal # Voids 2 # Bowel Movements 1 - Exam General appearance: The patient is alert, oriented, in no acute distress. HET: Head is normocephalic and atraumatic. Pupils are equal and reactive. Oropharynx is clear without lesions. Neck: Supple without lymphadenopathy. Trachea midline. Heart: S1 S2. Regular rate and rhythm. Lungs: No crackles or wheezes are heard. Abdomen: Soft, nontender, nondistended with bowel sounds. No peritoneal signs. No palpable organomegaly or masses. Extremities: Normal skin color and turgor. No cyanosis, rash, ulceration, clubbing, or edema. Radial and pedal pulses are 2/4 bilaterally. Neurological: No focal deficits. Strength and sensation are grossly intact. - Labs CBC & Chem 7: 09/03/16 06:25 09/03/16 06:25 Labs: Abnormal Lab Results - Last 24 Hours (Table) 09/02/16 09/02/16 09/02/16 Range/Units 11:51 15:15 17:02 WBC (3.8-10.6) k/uL RBC (4.30-5.90) m/uL MCV (80.0-100.0) fL MCH (25.0-35.0) pg Plt Count (150-450) k/uL Creatinine (0.66-1.25) mg/dL Glucose (74-99) mg/dL POC Glucose (mg/dL) 240 H 258 H 241 H (75-99) mg/dL Total Bilirubin (0.2-1.3) mg/dL AST (17-59) U/L ALT (21-72) U/L Alkaline Phosphatase (38-126) U/L Albumin (3.5-5.0) g/dL 09/02/16 09/03/16 09/03/16 Range/Units 19:55 06:25 06:25 WBC 3.0 L (3.8-10.6) k/uL RBC 4.08 L (4.30-5.90) m/uL MCV 103.9 H (80.0-100.0) fL MCH 35.4 H (25.0-35.0) pg Plt Count 54 L (150-450) k/uL Creatinine 0.63 L (0.66-1.25) mg/dL Glucose 181 H (74-99) mg/dL POC Glucose (mg/dL) 202 H (75-99) mg/dL Total Bilirubin 1.6 H (0.2-1.3) mg/dL AST 193 H (17-59) U/L ALT 255 H (21-72) U/L Alkaline Phosphatase 152 H (38-126) U/L Albumin 3.4 L (3.5-5.0) g/dL 09/03/16 Range/Units 06:57 WBC (3.8-10.6) k/uL RBC (4.30-5.90) m/uL MCV (80.0-100.0) fL MCH (25.0-35.0) pg Plt Count (150-450) k/uL Creatinine (0.66-1.25) mg/dL Glucose (74-99) mg/dL POC Glucose (mg/dL) 175 H (75-99) mg/dL Total Bilirubin (0.2-1.3) mg/dL AST (17-59) U/L ALT (21-72) U/L Alkaline Phosphatase (38-126) U/L Albumin (3.5-5.0) g/dL Assessment and Plan (1) Hepatic encephalopathy Narrative/Plan: 56-year-old gentleman with a history of hepatitis C with failed outpatient therapy, hepatic encephalopathy, remote EtOH abuse, possible underlying liver cirrhosis presents with altered mental status and elevated ammonia level consistent with acute hepatic encephalopathy with recent hospitalization at [facility] 2 weeks ago for acute hepatic encephalopathy. Status: Chronic (2) Altered mental status Status: Acute (3) Hepatitis C Status: Chronic Plan: 1. Continue with lactulose and titrate for 3 bowel movements daily. Continue Xifaxan. 2. Ultrasound abdomen/right upper quadrant reviewed by Dr. Jack. 3. Shorty follow as needed. Follow up GI office after discharge. Assessment and plan of care discussed with Dr. Jack
[2016-09-03 11:34] LABS: Glucose,Whole Blood 274 mg/dL (75-99)
[2016-09-03] MEDS: LISINOPRIL-HCTZ 20-25 MG 1 EACH TAB PO SCH (13:15)
--- NOTE | 2016-09-03 15:24 | P.PN ---
Objective - Vital Signs Vital signs: Vital Signs Temp 98.9 F 09/03/16 14:07 Pulse 83 09/03/16 14:07 Resp 16 09/03/16 14:07 BP 168/88 09/03/16 14:07 Pulse Ox 97 09/03/16 14:07 Intake & Output 09/02/16 09/03/16 09/03/16 18:59 06:59 18:59 Intake Total 540 500 960 Output Total 870 Balance -330 500 960 Intake: Oral 540 500 960 Output: Urine 870 Other: Voiding Method Urinal Urinal Urinal # Voids 2 # Bowel Movements 1 - Constitutional General appearance: Present: cooperative, no acute distress - EENT Eyes: Present: EOMI, PERRLA. Absent: abnormal pupil, ptosis ENT: Present: hearing grossly normal - Neck Neck: Present: normal ROM. Absent: rigidity - Respiratory Respiratory: negative: prolonged expiration, prolonged inspiration - Cardiovascular Rhythm: regular - Gastrointestinal General gastrointestinal: Absent: distended, tenderness - Neurologic Neurologic Comment(s): Is alert awake and oriented 3. Speech-language are normal. Strength is full in all 4 extremities. Although he has some decreased home care coordinator today on his right side he attributes this to pain from his Dupuytren's contracture. Sensory exam showed some diminished light touch sensation on the right upper and lower extremities, as well as the right side of the face. There is no facial asymmetry no tremors or seizure-like activities are seen. - Labs CBC & Chem 7: 09/03/16 06:25 09/03/16 06:25 Labs: Abnormal Lab Results - Last 24 Hours (Table) 09/02/16 09/02/16 09/02/16 Range/Units 15:15 17:02 19:55 WBC (3.8-10.6) k/uL RBC (4.30-5.90) m/uL MCV (80.0-100.0) fL MCH (25.0-35.0) pg Plt Count (150-450) k/uL Creatinine (0.66-1.25) mg/dL Glucose (74-99) mg/dL POC Glucose (mg/dL) 258 H 241 H 202 H (75-99) mg/dL Total Bilirubin (0.2-1.3) mg/dL AST (17-59) U/L ALT (21-72) U/L Alkaline Phosphatase (38-126) U/L Albumin (3.5-5.0) g/dL 09/03/16 09/03/16 09/03/16 Range/Units 06:25 06:25 06:57 WBC 3.0 L (3.8-10.6) k/uL RBC 4.08 L (4.30-5.90) m/uL MCV 103.9 H (80.0-100.0) fL MCH 35.4 H (25.0-35.0) pg Plt Count 54 L (150-450) k/uL Creatinine 0.63 L (0.66-1.25) mg/dL Glucose 181 H (74-99) mg/dL POC Glucose (mg/dL) 175 H (75-99) mg/dL Total Bilirubin 1.6 H (0.2-1.3) mg/dL AST 193 H (17-59) U/L ALT 255 H (21-72) U/L Alkaline Phosphatase 152 H (38-126) U/L Albumin 3.4 L (3.5-5.0) g/dL 09/03/16 Range/Units 11:32 WBC (3.8-10.6) k/uL RBC (4.30-5.90) m/uL MCV (80.0-100.0) fL MCH (25.0-35.0) pg Plt Count (150-450) k/uL Creatinine (0.66-1.25) mg/dL Glucose (74-99) mg/dL POC Glucose (mg/dL) 274 H (75-99) mg/dL Total Bilirubin (0.2-1.3) mg/dL AST (17-59) U/L ALT (21-72) U/L Alkaline Phosphatase (38-126) U/L Albumin (3.5-5.0) g/dL Assessment and Plan (1) Right-sided sensory deficit present Status: Acute (2) Hypertension Status: Chronic (3) Diabetes Status: Chronic (4) Thrombocytopenia Status: Acute (5) Altered mental status Status: Acute (6) Elevated liver enzymes Status: Chronic (7) Hepatic encephalopathy Status: Chronic (8) Hepatitis C Status: Chronic Plan: The patient's altered mental status continues to be fairly improved. His right sided numbness persists. He does report that this comes and goes over the course of the last few months. Again his CT of the brain showed no acute findings. MRI of the brain is pending. Continue current monitoring treatment of his ammonia level, and platelet level is. We will continue to follow and make further recommendations based on the above studies. I have performed a history and physical on the above patient. I have reviewed the above note, and agree.
--- NOTE | 2016-09-03 16:37 | MR ---
EXAMINATION TYPE: MR brain wo con DATE OF EXAM: 09/03/2016 4:19 PM. COMPARISON: NONE. HISTORY: Right-sided numbness. Technique: Multiplanar, multiecho imaging of the brain was obtained without intravenous contrast on a 3 Shadia magnet. FINDINGS: Midline structures are unremarkable. There is a normal craniocervical junction. Echo planar diffusion imaging shows abnormal signal in the posterior cerebellum bilaterally. This may be artifactual. There is moderate mucoperiosteal thickening involving the left maxillary sinus. There are normal vascular flow voids. The orbits are normal. There is no evidence of a CP angle mass lesion. There are scattered high signal FLAIR lesions in the deep white matter tracts of the cerebral hemisph eres. The largest is in the sheets radiata on the right and measures 5.9 mm on axial image 20. There is no mass effect, midline shift or intracranial blood. IMPRESSION: 1. ABNORMAL DIFFUSION IMAGING IN THE POSTERIOR CEREBELLUM BILATERALLY. I SUSPECT THIS IS ARTIFACTUAL. 2. SCATTERED HIGH SIGNAL FLAIR LESIONS IN THE DEEP WHITE MATTER TRACTS OF THE CEREBRAL HEMISPHERES. T HESE ARE NONSPECIFIC. 3. CHRONIC MUCOPERIOSTEAL THICKENING OF THE LEFT MAXILLARY SINUS.
[2016-09-03 17:05] LABS: Glucose,Whole Blood 242 mg/dL (75-99)
[2016-09-03 21:02] LABS: Glucose,Whole Blood 174 mg/dL (75-99)
[2016-09-04] MEDS: HYDROcodone/APAP 5-325MG 1 EACH TAB PO PRN ×3 (01:38→13:30)
[2016-09-04] MEDS: SODIUM CHLORIDE 0.9% 1,000 ML IV SCH (05:06)
[2016-09-04 07:20] LABS: Glucose,Whole Blood 187 mg/dL (75-99)
[2016-09-04 07:42] LABS: CH 36.7; HCT 42.4 % (39.0-53.0); HDW 2.68; HGB 14.8 gm/dL (13.0-17.5); MCH 36.7 pg (25.0-35.0); MCHC 34.9 g/dL (31.0-37.0); MCV 105.2 fL (80.0-100.0); Macrocytosis Slight; Mean Platelet Volume 9.5; RBC 4.03 m/uL (4.30-5.90); WBC 3.5 k/uL (3.8-10.6)
[2016-09-04 07:59] LABS: ALT 323 U/L (21-72); AST 247 U/L (17-59); Alkaline Phosphatase 137 U/L (38-126); Anion Gap 11 mmol/L; Blood Urea Nitrogen 13 mg/dL (9-20); Calcium 9.2 mg/dL (8.4-10.2); Carbon Dioxide 23 mmol/L (22-30); Chloride 103 mmol/L (98-107); Glucose 172 mg/dL (74-99); Non-African American GFR(MDRD) >60 (>60 ml/min/1.73 sqM); Potassium 3.9 mmol/L (3.5-5.1); Sodium 137 mmol/L (137-145); Total Bilirubin 1.6 mg/dL (0.2-1.3); Total Protein 7.6 g/dL (6.3-8.2)
[2016-09-04] MEDS: NICOTINE 21MG/24HR PATCH TRANSDERM SCH ×2 (08:03→08:06)
[2016-09-04] MEDS: INSULIN LISPRO (humaLOG) 300 UNIT/3 ML VIAL SQ SCH ×3 (08:04→12:44)
[2016-09-04] MEDS: LISINOPRIL-HCTZ 20-25 MG 1 EACH TAB PO SCH (08:06)
[2016-09-04] MEDS: FOLIC ACID 1 MG TAB PO SCH (08:06)
[2016-09-04] MEDS: GABAPENTIN 300 MG CAP PO SCH (08:07)
[2016-09-04] MEDS: PANTOPRAZOLE 40 MG TABLET PO SCH (08:07)
[2016-09-04] MEDS: BACLOFEN 10 MG TAB PO SCH (08:07)
[2016-09-04] MEDS: metFORMIN 500 MG TAB PO SCH (08:07)
[2016-09-04] MEDS: RIFAXIMIN 550 MG TABLET PO SCH (08:08)
[2016-09-04] MEDS: LACTULOSE 20 GM/30 ML CUP PO SCH (08:08)
[2016-09-04] MEDS: INSULIN GLARGINE 100 UNIT/ML 10 ML VIAL SQ SCH (08:15)
--- NOTE | 2016-09-04 09:09 | EEG ---
DATE OF SERVICE: 09/03/2016 INDICATIONS FOR EXAMINATION: Altered mental status and stroke. AGE: 56Y DESCRIPTION OF THE PROCEDURE: This EEG was performed using a 21-channel digital electroencephalograph, following the international 10 to 20 system. DESCRIPTION OF THE RECORDING: From the beginning of the tracing, and with the patient's eyes closed, the background rhythm was mostly consisting of 9 Hz alpha frequency in the posterior occipital leads. No obvious asymmetry is seen. Occasional movement artifacts are noticed. Photic stimulation was performed with a minimal driving response seen. No pathological waves were elicited. Hyperventilation was not performed. The patient remains awake throughout the tracing. No epileptiform discharges were seen. His EKG lead showed a regular rate and rhythm. INTERPRETATION: This awake EEG can be considered within normal limits. There was no asymmetry seen. No epileptiform discharges were noticed. The absence of epileptiform discharges does not rule out the diagnosis of epilepsy, therefore, clinical correlation is recommended.
[2016-09-04] MEDS ORDERED: HYDROmorphone 1 MG/ML 1 ML SYRINGE IVP PRN (09:24)
[2016-09-04 11:34] LABS: Glucose,Whole Blood 242 mg/dL (75-99)
[2016-09-04 12:07] VITALS: BP 144/85; PULSE 77; RESP 14; TEMP 98
--- NOTE | 2016-09-04 12:17 | P.DS ---
Providers Date of admission: 08/31/16 23:44 Expected date of discharge: 09/04/16 Attending physician: Cameron Gautam Consults: 09/01/16 07:57 Consult Physician Routine Consulting Provider: Torrie Herring Consult Reason/Comments: confusion Do you want consulting provider notified?: Yes Primary care physician: [facility] Course: A 56-year-old male who has a history of hepatitis C and liver failure just recently was discharged 2 weeks prior at the [facility] where patient was treated for acute hepatic encephalopathy. Patient has a history of hepatitis C failed outpatient therapy Patient was admitted with acute hepatic encephalopathy due to an elevated ammonia level. The admission ammonia level was 40. GI consultation was requested. Patient indicated that he forgot to take his medication. Patient was placed on per recommendations of GI Xifaxan and lactulose repeat ammonia level 34. Ultrasound abdomen reported no intrahepatic ductal dilatation. Heterogeneous liver. Possible portal hypertension with recannulization of umbilical vein. AFP 8.7 Hepatitis C antibody reactive quantitative measurement pending. Neurology consultation was requested patient did have an episode of having right upper extremity weakness. There was no facial drooping no facial asymmetry. There was no tremors no seizure-like activity. Patient was reportedly experiencing sensory exam that showed diminished light touch to the right upper and lower extremity as well as right side of the face. 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 In the MRI of the brain also showed no acute findings the MRI of the brain showed thickening of the left maxillary sinus. Patient's symptoms resolved. Patient ammonia level was monitored and September 03 was . Hemoglobin A1c was 7.6. Patient was back to his baseline. There were no further episodes of confusion. The corrections caseworkercontract administration manager worker to pursue the discharge plan the patient's daughter who lives in [place] was coming to make arrangements to pick the patient up the patient could be moved in with her to live in the [place] area. Patient was felt to be hemodynamically stable and appropriate proceed with a discharge to home Impression Present on admission acute hepatic encephalopathy History of hepatitis C failed outpatient therapy Remote EtOH abuse possible underlying liver cirrhosis A recent hospitalization 2 weeks prior [facility] treated for acute hepatic encephalopathy Per advance directives no CODE STATUS Type 2 diabetes insulin requiring hemoglobin A1c 7.6 Sudden onset September 02 right side weakness MRI of the brain without contrast ordered to rule out evidence of acute ischemia showed no acute findings Episode on September 02 hypertension urgency Bilateral carotid Dopplers no significant carotid stenosis noted History of a prior stroke Chronic pain with narcotic dependency Episode of right side sensory deficit resolved Thrombocytopenia chronic suspect due to underlying liver cirrhosis the patient with history of alcoholism Hypertension Chronic nicotine dependency greater than a 20 year history 1 pack a day Medication noncompliant The above dictated assessment and findings were discussed with dr sterling. Impression and the plan of care have been dictated as directed. Katia Zhong nurse practitioner acting as a scribe for dr sterling Patient Condition at Discharge: Fair Plan - Discharge Summary Discharge Medication List Baclofen [Lioresal] 20 mg PO TID 08/15/14 [History] Insulin Aspart [NovoLOG] 8 unit SQ AC-TID 08/15/14 [History] Insulin Glargine [Lantus] 20 unit SQ DAILY 08/15/14 [History] Lactulose [Cephulac] 30 ml PO BID 08/15/14 [History] Folic Acid 1 mg PO DAILY 08/31/16 [History] Gabapentin [Neurontin] 300 mg PO BID 08/31/16 [History] HYDROcodone/APAP 5-325MG [[place] 5-325] 1 - 2 tab PO Q6HR PRN 08/31/16 [History] Lansoprazole [Prevacid] 15 mg PO DAILY 08/31/16 [History] Lisinopril-Hctz 20-12.5 mg [Zestoretic 20-12.5] 1 tab PO DAILY 08/31/16 [History ] Ranitidine HCl [Zantac] 150 mg PO BID 08/31/16 [History] Rifaximin [Xifaxan] 550 mg PO BID 08/31/16 [History] metFORMIN HCL [Glucophage] 500 mg PO BID 08/31/16 [History] fentaNYL 50MCG/HR PATCH [Duragesic 50MCG/HR] 50 mcg TRANSDERM Q72H 09/02/16 [ History] Nicotine 21Mg/24Hr Patch [Habitrol] 1 patch TRANSDERM DAILY patch 09/04/16 [Rx] Follow up Appointment(s)/Referral(s): [facility], [NON-STAFF] - Myah Michaud DO [Primary Care Provider] - 1-2 days Mimi Fisher PAC [REFERRING] - 1 Week Discharge Disposition: HOME SELF-CARE
--- NOTE | 2016-09-04 12:55 | P.PN ---
Subjective Principal diagnosis: Altered mental status This is a 56 her old male continue to be evaluated by the neurology service for altered mental status. His long-standing history of hepatitis C with chronic liver insufficiency. He was recently treated at the [facility] for hepatic encephalopathy. Although he has persistent numbness and tingling and sometimes pain in all extremities as a result of his long standing hepatic disease, there was some concern over some increased right sided symptoms. Recall that a CT of the brain was done and showed no acute intracranial abnormalities. An MRI was done and again showed no acute intracranial abnormalities. Some nonspecific white matter changes were seen, along with some cerebellar artifact. At the time of my exam he is dressed and ready for discharge in no acute distress, eating his lunch. Objective - Vital Signs Vital signs: Vital Signs Temp 98 F 09/04/16 07:00 Pulse 77 09/04/16 08:00 Resp 14 09/04/16 08:00 BP 144/85 09/04/16 07:00 Pulse Ox 96 09/04/16 07:00 Intake & Output 09/03/16 09/04/16 09/04/16 18:59 06:59 18:59 Intake Total 1440 400 480 Output Total 500 Balance 940 400 480 Intake: Intake, IV Titration 400 Amount Sodium Chloride 0.9% 1, 400 000 ml @ 50 mls/hr IV . Q20H [facility] Rx#:[id number] Oral 1440 480 Output: Urine 500 Other: Voiding Method Urinal Urinal Urinal # Voids 3 - Constitutional General appearance: Present: cooperative - EENT Eyes: Present: EOMI, PERRLA. Absent: abnormal pupil, ptosis ENT: Present: hearing grossly normal - Neck Neck: Present: normal ROM. Absent: rigidity - Respiratory Respiratory: negative: prolonged expiration, prolonged inspiration - Cardiovascular Rhythm: regular - Gastrointestinal General gastrointestinal: Absent: distended, tenderness - Neurologic Neurologic Comment(s): Is alert awake and oriented 3. Speech and language are normal. There is no facial asymmetry. Sensory deficit has resolved. There is no weakness bilateral upper lower extremities. No tremors seizure-like activities are seen. - Labs CBC & Chem 7: 09/04/16 06:50 09/04/16 06:50 Labs: Abnormal Lab Results - Last 24 Hours (Table) 09/03/16 09/03/16 09/04/16 Range/Units 16:54 20:49 06:50 WBC 3.5 L (3.8-10.6) k/uL RBC 4.03 L (4.30-5.90) m/uL MCV 105.2 H (80.0-100.0) fL MCH 36.7 H (25.0-35.0) pg Plt Count 55 L (150-450) k/uL Glucose (74-99) mg/dL POC Glucose (mg/dL) 242 H 174 H (75-99) mg/dL Total Bilirubin (0.2-1.3) mg/dL AST (17-59) U/L ALT (21-72) U/L Alkaline Phosphatase (38-126) U/L 09/04/16 09/04/16 09/04/16 Range/Units 06:50 07:03 11:29 WBC (3.8-10.6) k/uL RBC (4.30-5.90) m/uL MCV (80.0-100.0) fL MCH (25.0-35.0) pg Plt Count (150-450) k/uL Glucose 172 H (74-99) mg/dL POC Glucose (mg/dL) 187 H 242 H (75-99) mg/dL Total Bilirubin 1.6 H (0.2-1.3) mg/dL AST 247 H (17-59) U/L ALT 323 H (21-72) U/L Alkaline Phosphatase 137 H (38-126) U/L Assessment and Plan (1) Right-sided sensory deficit present Status: Acute (2) Hypertension Status: Chronic (3) Diabetes Status: Chronic (4) Thrombocytopenia Status: Acute (5) Altered mental status Status: Resolved (6) Elevated liver enzymes Status: Chronic (7) Hepatic encephalopathy Status: Chronic (8) Hepatitis C Status: Chronic Plan: The patient's altered mental status continues to be improved. His right sided numbness has mostly resolved. He does report that this comes and goes over the course of the last few months. Again his MRI of the brain showed no acute findings. Continue current monitoring treatment of his ammonia level, and platelet level is. He is cleared from a neurological standpoint I have performed a history and physical on the above patient. I have reviewed the above note, and agree.
[2016-09-04 15:20] LABS: HCV Qualitative Result DETECTED (Not detected)
== END 2016-09-04 13:40 | disposition home health service (06) | DRG 433 ==
LOC: EC 21:36 → 3SUR 23:44
PROVIDERS: ADMIT Family Medicine; ATTEND Family Medicine
DX: K70.40 Alcoholic hepatic failure without coma (principal); E87.1 Hypo-osmolality and hyponatremia; K70.30 Alcoholic cirrhosis of liver without ascites; K76.6 Portal hypertension; E72.4 Disorders of ornithine metabolism; E11.65 Type 2 diabetes mellitus with hyperglycemia; I85.10 Secondary esophageal varices without bleeding; D69.6 Thrombocytopenia, unspecified; F11.20 Opioid dependence, uncomplicated; I10 Essential (primary) hypertension; Z86.73 Personal history of transient ischemic attack (TIA), and cerebral infarction without residual deficits; Z66 Do not resuscitate; I16.0 Hypertensive urgency; J32.0 Chronic maxillary sinusitis; R16.0 Hepatomegaly, not elsewhere classified; R60.9 Edema, unspecified; I67.9 Cerebrovascular disease, unspecified; B18.2 Chronic viral hepatitis C; F10.20 Alcohol dependence, uncomplicated; M72.0 Palmar fascial fibromatosis [Dupuytren]; J44.9 Chronic obstructive pulmonary disease, unspecified; R11.0 Nausea; R53.1 Weakness; F32.9 Major depressive disorder, single episode, unspecified; F17.210 Nicotine dependence, cigarettes, uncomplicated; F41.9 Anxiety disorder, unspecified; G89.29 Other chronic pain; H54.7 Unspecified visual loss; M54.5 Low back pain; R10.9 Unspecified abdominal pain; Z79.4 Long term (current) use of insulin; Z83.3 Family history of diabetes mellitus; Z82.49 Family history of ischemic heart disease and other diseases of the circulatory system; Z88.6 Allergy status to analgesic agent; Z87.448 Personal history of other diseases of urinary system; Z79.84 Long term (current) use of oral hypoglycemic drugs; Z79.899 Other long term (current) drug therapy; Z79.2 Long term (current) use of antibiotics; Z89.029 Acquired absence of unspecified finger(s); Z91.14 Patient's other noncompliance with medication regimen; Y90.0 Blood alcohol level of less than 20 mg/100 ml
CPT/HCPCS: 36415; 70450; 70551; 71010; 76705; 80053; 80061; 80074; 80306; 80320; 81003; 82105; 82140; 82550; 82553; 83036; 83090; 83520; 83605; 83735; 84100; 84484; 85025; 85027; 85610; 85730; 87086; 87522; 87902; 93005; 93880; 95819; 96360; 99285